=== PATIENT | female | born 1965 | race African-American/Black ===

== ENCOUNTER 2020-05-31 21:56 | Inpatient (IN) | payer MEDICAID ==
[~2020-05-31] VITALS: Ht 177.8 cm; Wt 106.6 kg
[2020-05-31 21:56] VITALS: BP_SYST 135; BP_SYST 145; BP_DIAS 66
[~2020-05-31 21:56] MED LIST: ASPI-1497 PO; BENA10TA74 PO; METF-416 PO
[2020-06-01] MEDS ORDERED: CLONIDINE 0.1MG TABLET PO PRN (00:30)
[2020-06-01] MEDS ORDERED: DEXTROSE 50% WATER 50ML SYRINGE IV PRN (00:30)
[2020-06-01] MEDS: BLOOD SUGAR DIAGNOSTIC STRIP TEST SCH ×4 (06:59→21:31)
[2020-06-01] MEDS: INSULIN LISPRO 100 UNITS/ML SUBCUT SCH ×4 (07:00→22:09)
[2020-06-01 08:00] VITALS: BP 141/54
[2020-06-01] MEDS: ASPIRIN 81MG EC TABLET PO SCH (08:42)
[2020-06-01] MEDS: FAMOTIDINE 20MG TABLET PO SCH ×2 (08:42→21:53)
[2020-06-01] MEDS: AMLODIPINE 10MG TABLET PO SCH (08:43)
[2020-06-01] MEDS: CLOPIDOGREL 75MG TABLET PO SCH (08:43)
[2020-06-01] MEDS: METFORMIN HCL 500MG TABLET PO SCH ×2 (08:47→18:28)
[2020-06-01] MEDS: ENOXAPARIN 30MG/0.3ML SYR SUBCUT SCH ×2 (08:47→21:55)
[2020-06-01 08:53] LABS: BASOPHILS % 0.7 % (0.0-2.0); EOSINOPHILS % 1.8 % (0.0-5.0); HEMATOCRIT. 40.2 % (36.0-48.0); HEMOGLOBIN. 13.3 g/dL (12.0-16.0); LYMPHOCYTES % 30.3 % (20.0-50.0); MEAN CORPUSCULAR HEMOGLOBIN 28.2 pg (28.0-32.0); MEAN CORPUSCULAR VOLUME 85.3 fL (81.0-99.0); MEAN PLATELET VOLUME 9.3 fl (7.4-10.4); MONOCYTES % 6.6 % (2.0-8.0); NEUTROPHILS % 60.6 % (40.0-76.0); PLATELET 347 x1000/uL (130-400); RED BLOOD CELL COUNT 4.71 mill/uL (4.2-5.4); RED CELL DISTRIBUTION WIDTH 13.7 % (11.6-14.6)
[2020-06-01] MEDS ORDERED: BENAZEPRIL 5MG TABLET PO SCH (09:00)
[2020-06-01 09:11] LABS: CHLORIDE 106 mEq/L (98-107)
[2020-06-01 19:54] LABS: CLARITY URINE CLEAR (CLEAR); COLOR URINE YELLOW (YELLOW); KETONES URINE NEGATIVE (NEGATIVE); LEUKOCYTE ESTERASE URINE NEGATIVE (NEGATIVE); NITRITE URINE NEGATIVE (NEGATIVE); OCCULT BLOOD URINE NEGATIVE (NEGATIVE); PROTEIN URINE NEGATIVE (NEGATIVE); SPECIFIC GRAVITY URINE 1.015 (1.005-1.030); UROBILINOGEN URINE 0.2 E.U./dL (0.2-1.0)
[2020-06-01 20:00] VITALS: BP 167/70
[2020-06-01] MEDS ORDERED: ATORVASTATIN CALCIUM 20MG TABLET PO SCH (21:00)
[2020-06-01] MEDS: ATORVASTATIN CALCIUM 40MG TABLET PO SCH (21:52)
[2020-06-01] MEDS: GABAPENTIN 300MG CAPSULE PO SCH (21:52)
[2020-06-02] MEDS: BLOOD SUGAR DIAGNOSTIC STRIP TEST SCH ×4 (06:29→20:13)
[2020-06-02] MEDS: INSULIN LISPRO 100 UNITS/ML SUBCUT SCH ×4 (06:30→20:16)
[2020-06-02 07:01] LABS: CHLORIDE 106 mEq/L (98-107)
[2020-06-02 07:02] LABS: BASOPHILS % 0.8 % (0.0-2.0); EOSINOPHILS % 2.2 % (0.0-5.0); HEMOGLOBIN. 12.9 g/dL (12.0-16.0); LYMPHOCYTES % 30.2 % (20.0-50.0); MEAN CORPUSCULAR HEMOGLOBIN 28.4 pg (28.0-32.0); MEAN CORPUSCULAR VOLUME 85.6 fL (81.0-99.0); MEAN PLATELET VOLUME 9.2 fl (7.4-10.4); MONOCYTES % 7.4 % (2.0-8.0); NEUTROPHILS % 59.4 % (40.0-76.0); PLATELET 313 x1000/uL (130-400); RED BLOOD CELL COUNT 4.55 mill/uL (4.2-5.4); RED CELL DISTRIBUTION WIDTH 13.2 % (11.6-14.6)
[2020-06-02 07:14] LABS: PHOSPHORUS 4.4 mg/dL (2.5-4.9)
[2020-06-02 07:17] LABS: FOLIC ACID (FOLATE) SERUM 8.5 ng/mL (>5.38)
[2020-06-02 07:18] LABS: TOTAL IRON BINDING CAPACITY 356 ug/dL (250-450)
[2020-06-02 08:05] VITALS: BP 151/73
[2020-06-02] MEDS: DOCUSATE SODIUM 100MG CAPSULE PO SCH (08:11)
[2020-06-02] MEDS: FAMOTIDINE 20MG TABLET PO SCH ×2 (08:11→20:12)
[2020-06-02] MEDS: CLOPIDOGREL 75MG TABLET PO SCH (08:11)
[2020-06-02] MEDS: AMLODIPINE 10MG TABLET PO SCH (08:12)
[2020-06-02] MEDS: ASPIRIN 81MG EC TABLET PO SCH (08:12)
[2020-06-02] MEDS: METFORMIN HCL 500MG TABLET PO SCH ×2 (08:12→16:18)
[2020-06-02] MEDS: ENOXAPARIN 30MG/0.3ML SYR SUBCUT SCH ×2 (08:13→20:13)
[2020-06-02] MEDS ORDERED: BISACODYL 5MG TABLET PO PRN ×2 (09:00→11:30)
[2020-06-02] MEDS ORDERED: BENAZEPRIL 10MG TABLET PO SCH (09:00)
[2020-06-02] MEDS ORDERED: BISACODYL 10MG SUPP PR NR (09:00)
[2020-06-02] MEDS ORDERED: LACTULOSE 20G/30ML UDC PO PRN (11:30)
[2020-06-02] MEDS ORDERED: NA PHOS,M-B/NA PHOS,DI-BA ENEMA 118ML PR PRN (11:30)
[2020-06-02 20:00] VITALS: BP 137/70
[2020-06-02] MEDS: GABAPENTIN 300MG CAPSULE PO SCH (20:12)
[2020-06-02] MEDS: ATORVASTATIN CALCIUM 40MG TABLET PO SCH (20:12)
[2020-06-03] MEDS: INSULIN LISPRO 100 UNITS/ML SUBCUT SCH ×4 (07:00→20:45)
[2020-06-03] MEDS: BLOOD SUGAR DIAGNOSTIC STRIP TEST SCH ×4 (07:15→20:45)
[2020-06-03 08:21] VITALS: BP 149/85
[2020-06-03] MEDS: ASPIRIN 81MG EC TABLET PO SCH (08:55)
[2020-06-03] MEDS: BENAZEPRIL 10MG TABLET PO SCH (08:56)
[2020-06-03] MEDS: METFORMIN HCL 500MG TABLET PO SCH ×2 (08:56→16:39)
[2020-06-03] MEDS: AMLODIPINE 10MG TABLET PO SCH (08:57)
[2020-06-03] MEDS: FAMOTIDINE 20MG TABLET PO SCH ×2 (08:57→20:45)
[2020-06-03] MEDS: CLOPIDOGREL 75MG TABLET PO SCH (08:57)
[2020-06-03] MEDS: DOCUSATE SODIUM 100MG CAPSULE PO SCH (08:58)
[2020-06-03] MEDS: ENOXAPARIN 30MG/0.3ML SYR SUBCUT SCH ×2 (08:58→20:45)
[2020-06-03 20:00] VITALS: BP 174/79
[2020-06-03 20:40] VITALS: BP 153/71
[2020-06-03] MEDS: GABAPENTIN 300MG CAPSULE PO SCH (20:45)
[2020-06-03] MEDS: ATORVASTATIN CALCIUM 40MG TABLET PO SCH (20:45)
[2020-06-04 06:01] LABS: BASOPHILS % 0.9 % (0.0-2.0); EOSINOPHILS % 1.7 % (0.0-5.0); HEMOGLOBIN. 12.7 g/dL (12.0-16.0); LYMPHOCYTES % 29.2 % (20.0-50.0); MEAN CORPUSCULAR HEMOGLOBIN 28.4 pg (28.0-32.0); MEAN CORPUSCULAR VOLUME 85.2 fL (81.0-99.0); MONOCYTES % 7.5 % (2.0-8.0); NEUTROPHILS % 60.7 % (40.0-76.0); PLATELET 318 x1000/uL (130-400); RED BLOOD CELL COUNT 4.47 mill/uL (4.2-5.4); RED CELL DISTRIBUTION WIDTH 13.6 % (11.6-14.6)
[2020-06-04] MEDS: BLOOD SUGAR DIAGNOSTIC STRIP TEST SCH ×4 (06:02→20:07)
[2020-06-04] MEDS: INSULIN LISPRO 100 UNITS/ML SUBCUT SCH ×4 (06:02→20:47)
[2020-06-04 06:18] LABS: CHLORIDE 106 mEq/L (98-107)
[2020-06-04 08:00] VITALS: BP 152/76
[2020-06-04] MEDS: CLOPIDOGREL 75MG TABLET PO SCH (12:11)
[2020-06-04] MEDS: AMLODIPINE 10MG TABLET PO SCH (12:11)
[2020-06-04] MEDS: DOCUSATE SODIUM 100MG CAPSULE PO SCH (12:12)
[2020-06-04] MEDS: BENAZEPRIL 10MG TABLET PO SCH (12:13)
[2020-06-04] MEDS: METFORMIN HCL 500MG TABLET PO SCH ×2 (12:13→17:31)
[2020-06-04] MEDS: ASPIRIN 81MG EC TABLET PO SCH (12:15)
[2020-06-04] MEDS: FAMOTIDINE 20MG TABLET PO SCH ×2 (12:15→20:06)
[2020-06-04] MEDS: ENOXAPARIN 30MG/0.3ML SYR SUBCUT SCH ×2 (12:16→20:06)
[2020-06-04 20:00] VITALS: BP 153/72
[2020-06-04] MEDS: GABAPENTIN 300MG CAPSULE PO SCH (20:06)
[2020-06-04] MEDS: ATORVASTATIN CALCIUM 40MG TABLET PO SCH (20:06)
[2020-06-05] MEDS: INSULIN LISPRO 100 UNITS/ML SUBCUT SCH ×4 (05:38→20:23)
[2020-06-05] MEDS: BLOOD SUGAR DIAGNOSTIC STRIP TEST SCH ×4 (05:38→20:23)
[2020-06-05 07:50] VITALS: BP 149/69
[2020-06-05] MEDS: BENAZEPRIL 10MG TABLET PO SCH (08:55)
[2020-06-05] MEDS: ASPIRIN 81MG EC TABLET PO SCH (08:55)
[2020-06-05] MEDS: DOCUSATE SODIUM 100MG CAPSULE PO SCH (08:55)
[2020-06-05] MEDS: CLOPIDOGREL 75MG TABLET PO SCH (08:55)
[2020-06-05] MEDS: METFORMIN HCL 500MG TABLET PO SCH ×2 (08:55→16:15)
[2020-06-05] MEDS: FAMOTIDINE 20MG TABLET PO SCH ×2 (08:55→20:23)
[2020-06-05] MEDS: AMLODIPINE 10MG TABLET PO SCH (08:56)
[2020-06-05] MEDS: ENOXAPARIN 30MG/0.3ML SYR SUBCUT SCH ×2 (08:58→20:23)
[2020-06-05 16:15] VITALS: BP 135/61
[2020-06-05] MEDS: AMLODIPINE 5MG TABLET PO SCH (16:21)
[2020-06-05 20:00] VITALS: BP 151/79
[2020-06-05] MEDS: ATORVASTATIN CALCIUM 40MG TABLET PO SCH (20:23)
[2020-06-05] MEDS: GABAPENTIN 300MG CAPSULE PO SCH (20:23)
[2020-06-06] MEDS: BLOOD SUGAR DIAGNOSTIC STRIP TEST SCH ×4 (05:43→21:46)
[2020-06-06] MEDS: INSULIN LISPRO 100 UNITS/ML SUBCUT SCH ×4 (05:43→21:00)
[2020-06-06 08:00] VITALS: BP 150/77
[2020-06-06] MEDS: ASPIRIN 81MG EC TABLET PO SCH (10:09)
[2020-06-06] MEDS: CLOPIDOGREL 75MG TABLET PO SCH (10:09)
[2020-06-06] MEDS: FAMOTIDINE 20MG TABLET PO SCH ×2 (10:10→21:45)
[2020-06-06] MEDS: METFORMIN HCL 500MG TABLET PO SCH ×2 (10:10→16:53)
[2020-06-06] MEDS: DOCUSATE SODIUM 100MG CAPSULE PO SCH (10:11)
[2020-06-06] MEDS: BENAZEPRIL 10MG TABLET PO SCH (10:11)
[2020-06-06] MEDS: AMLODIPINE 5MG TABLET PO SCH ×2 (10:11→16:53)
[2020-06-06] MEDS: ENOXAPARIN 30MG/0.3ML SYR SUBCUT SCH ×2 (10:13→21:47)
[2020-06-06 20:00] VITALS: BP 154/72
[2020-06-06] MEDS: GABAPENTIN 300MG CAPSULE PO SCH (21:45)
[2020-06-06] MEDS: ATORVASTATIN CALCIUM 40MG TABLET PO SCH (21:45)
[2020-06-07] MEDS: BLOOD SUGAR DIAGNOSTIC STRIP TEST SCH ×4 (06:38→20:28)
[2020-06-07] MEDS: INSULIN LISPRO 100 UNITS/ML SUBCUT SCH ×4 (07:34→20:28)
[2020-06-07 08:08] VITALS: BP 134/58
[2020-06-07] MEDS: ASPIRIN 81MG EC TABLET PO SCH (08:59)
[2020-06-07] MEDS: DOCUSATE SODIUM 100MG CAPSULE PO SCH (08:59)
[2020-06-07] MEDS: FAMOTIDINE 20MG TABLET PO SCH ×2 (08:59→20:28)
[2020-06-07] MEDS: ENOXAPARIN 30MG/0.3ML SYR SUBCUT SCH ×2 (08:59→20:30)
[2020-06-07] MEDS: CLOPIDOGREL 75MG TABLET PO SCH (08:59)
[2020-06-07] MEDS: METFORMIN HCL 500MG TABLET PO SCH ×2 (08:59→17:24)
[2020-06-07] MEDS: AMLODIPINE 5MG TABLET PO SCH ×2 (09:00→17:24)
[2020-06-07] MEDS: BENAZEPRIL 10MG TABLET PO SCH (11:24)
[2020-06-07 17:06] LABS: 25-HYDROXY VITAMIN D3 19 ng/mL (.)
[2020-06-07 20:00] VITALS: BP 173/84
[2020-06-07] MEDS: ATORVASTATIN CALCIUM 40MG TABLET PO SCH (20:27)
[2020-06-07] MEDS: GABAPENTIN 300MG CAPSULE PO SCH (20:27)
[2020-06-07 21:50] VITALS: BP 128/65
[2020-06-08] MEDS: INSULIN LISPRO 100 UNITS/ML SUBCUT SCH ×4 (06:35→21:00)
[2020-06-08] MEDS: BLOOD SUGAR DIAGNOSTIC STRIP TEST SCH ×4 (06:35→21:30)
[2020-06-08 07:07] LABS: BASOPHILS % 0.8 % (0.0-2.0); EOSINOPHILS % 1.5 % (0.0-5.0); LYMPHOCYTES % 34.6 % (20.0-50.0); MEAN CORPUSCULAR HEMOGLOBIN 28.1 pg (28.0-32.0); MEAN CORPUSCULAR VOLUME 86.4 fL (81.0-99.0); MEAN PLATELET VOLUME 9.4 fl (7.4-10.4); NEUTROPHILS % 53.1 % (40.0-76.0); PLATELET 313 x1000/uL (130-400); RED BLOOD CELL COUNT 4.28 mill/uL (4.2-5.4)
[2020-06-08 07:20] LABS: CHLORIDE 108 mEq/L (98-107)
[2020-06-08 08:24] VITALS: BP 124/52
[2020-06-08] MEDS ORDERED: POTASSIUM CHLORIDE 20MEQ TABLET SR PO NR (09:15)
[2020-06-08] MEDS: ASPIRIN 81MG EC TABLET PO SCH (09:17)
[2020-06-08] MEDS: CLOPIDOGREL 75MG TABLET PO SCH (09:17)
[2020-06-08] MEDS: DOCUSATE SODIUM 100MG CAPSULE PO SCH (09:17)
[2020-06-08] MEDS: METFORMIN HCL 500MG TABLET PO SCH ×2 (09:17→16:55)
[2020-06-08] MEDS: FAMOTIDINE 20MG TABLET PO SCH ×2 (09:17→21:31)
[2020-06-08] MEDS: AMLODIPINE 5MG TABLET PO SCH ×2 (09:18→16:54)
[2020-06-08] MEDS: ENOXAPARIN 30MG/0.3ML SYR SUBCUT SCH ×2 (10:46→21:32)
[2020-06-08] MEDS: BENAZEPRIL 10MG TABLET PO SCH (10:47)
[2020-06-08] MEDS ORDERED: ERGOCALCIFEROL 50000UNITS CAPSULE PO SCH (15:00)
[2020-06-08 20:00] VITALS: BP 138/70
[2020-06-08] MEDS: GABAPENTIN 300MG CAPSULE PO SCH (21:31)
[2020-06-08] MEDS: ATORVASTATIN CALCIUM 40MG TABLET PO SCH (21:31)
[2020-06-09 06:20] LABS: BASOPHILS % 0.6 % (0.0-2.0); EOSINOPHILS % 1.7 % (0.0-5.0); HEMATOCRIT. 36.8 % (36.0-48.0); HEMOGLOBIN. 12.5 g/dL (12.0-16.0); LYMPHOCYTES % 31.4 % (20.0-50.0); MEAN CORPUSCULAR HEMOGLOBIN 28.9 pg (28.0-32.0); MEAN CORPUSCULAR VOLUME 84.9 fL (81.0-99.0); MEAN PLATELET VOLUME 9.4 fl (7.4-10.4); MONOCYTES % 6.8 % (2.0-8.0); NEUTROPHILS % 59.5 % (40.0-76.0); PLATELET 316 x1000/uL (130-400); RED BLOOD CELL COUNT 4.33 mill/uL (4.2-5.4); RED CELL DISTRIBUTION WIDTH 13.5 % (11.6-14.6)
[2020-06-09] MEDS: BLOOD SUGAR DIAGNOSTIC STRIP TEST SCH ×3 (06:30→16:50)
[2020-06-09 06:35] LABS: CHLORIDE 108 mEq/L (98-107)
[2020-06-09 08:04] VITALS: BP 144/72
[2020-06-09] MEDS: INSULIN LISPRO 100 UNITS/ML SUBCUT SCH ×3 (09:00→16:51)
[2020-06-09] MEDS: DOCUSATE SODIUM 100MG CAPSULE PO SCH (09:12)
[2020-06-09] MEDS: METFORMIN HCL 500MG TABLET PO SCH ×2 (09:12→16:50)
[2020-06-09] MEDS: CLOPIDOGREL 75MG TABLET PO SCH (09:13)
[2020-06-09] MEDS: ENOXAPARIN 30MG/0.3ML SYR SUBCUT SCH (09:13)
[2020-06-09] MEDS: AMLODIPINE 5MG TABLET PO SCH ×2 (09:13→16:50)
[2020-06-09] MEDS: ASPIRIN 81MG EC TABLET PO SCH (09:13)
[2020-06-09] MEDS: FAMOTIDINE 20MG TABLET PO SCH (09:13)
[2020-06-09] MEDS: BENAZEPRIL 10MG TABLET PO SCH (10:26)
[2020-06-09 13:36] VITALS: BP 144/72
[2020-06-09] MEDS ORDERED: LIP40 PO (14:06)
[2020-06-09] MEDS ORDERED: BENA10TA74 PO (14:06)
[2020-06-09] MEDS ORDERED: CLOP75TA15 PO (14:06)
[2020-06-09] MEDS ORDERED: AMLO5TAB88 PO (14:06)
[2020-06-09] MEDS ORDERED: METF-416 PO (14:07)
[2020-06-09] MEDS ORDERED: ASPI-1497 PO (14:07)
== END 2020-06-09 17:30 | disposition home or self-care (01) | DRG 58 ==
PROVIDERS: ADMIT Physical Medicine & Rehabilitation Spinal Cord Injury Medicine; ATTEND Internal Medicine
DX: I69.351 Hemiplegia and hemiparesis following cerebral infarction affecting right dominant side (principal); I63.9 Cerebral infarction, unspecified; R47.1 Dysarthria and anarthria; E66.01 Morbid (severe) obesity due to excess calories; R53.81 Other malaise; E11.9 Type 2 diabetes mellitus without complications; E78.00 Pure hypercholesterolemia, unspecified; I10 Essential (primary) hypertension; Z90.710 Acquired absence of both cervix and uterus; R26.89 Other abnormalities of gait and mobility; R41.4 Neurologic neglect syndrome; E78.5 Hyperlipidemia, unspecified; G62.9 Polyneuropathy, unspecified; I27.20 Pulmonary hypertension, unspecified; R29.810 Facial weakness; Z79.02 Long term (current) use of antithrombotics/antiplatelets; Z79.82 Long term (current) use of aspirin; E55.9 Vitamin D deficiency, unspecified; Z79.4 Long term (current) use of insulin; Z68.33 Body mass index [BMI] 33.0-33.9, adult
CPT/HCPCS: 36415; 73120; 80048; 80053; 81003; 82306; 82607; 82728; 82746; 82962; 83036; 83540; 83550; 83735; 84100; 84134; 84443; 85025; 92523; 92610; 93970; 97110; 97112; 97116; 97162; 97166; 97530; 97535; J1650; J1815